=== PATIENT | male | born 1980 | race African-American/Black ===

== ENCOUNTER 2017-10-19 07:43 | Emergency (ER) | payer OTHER ==
[~2017-10-19] VITALS: Ht 180.3 cm; Wt 86.2 kg
[2017-10-19 07:46] VITALS: BP 113/85
--- NOTE | 2017-10-19 07:52 | NUR ---
PATIENT IS A 37 YO MALE BIB [facility] FOR PREBOOK EXAM. AWAKE AND ALERT ON WHEELCHAIR NO OBVIOUS INJURY. PATIENT C/O NECK PAIN ABLE TO MOVE ALL EXTREMITIES, NO WOUNDS, ABRASIONS.
[2017-10-19 08:00] VITALS: BP 113/85
--- NOTE | 2017-10-19 08:00 | NUR ---
Patient discharged with v/s stable. Written and verbal after care instructions given and explained. Patient verbalized understanding. Police with in custody. All questions addressed prior to discharge. Advised to follow up with PMD.
== END 2017-10-19 08:00 ==
LOC: MED 07:43
DX: Z02.89 Encounter for other administrative examinations (principal); I10 Essential (primary) hypertension
CPT/HCPCS: 99283